=== PATIENT | male | born 1980 | race African-American/Black ===

== ENCOUNTER 2016-12-23 04:25 | Inpatient (IN) | payer MEDICAID ==
--- NOTE | ~2016-12-23 | CR72 ---
[facility] A Service of [facility] & [facility] RADIOLOGY TEXT RESULTS PATIENT: EDY COULTER LOCATION: [place] [address] : [birth year] UNIT #: [id number] AGE: [address]: Gracy Bassett MD SEX: M ORDER DR: [id number] [place] [id number] [place], [place] [address] [id number] I MR#: [id number] Acc #: [id number] NAME: EDY COULTER : 1980 SEX: M STUDY DATE/TIME: 12/24/2016 4:49 UNIT: [facility] ROOM: [facility] STUDY DESCRIPTION: CR Chest Single View Portable Attending Physician: Gracy Bassett M.D. Ordering Physician: Leandro Victor M.D. Primary Care Physician: No Primary Care Physician MEDICAL IMAGING REPORT This report is preliminary unless electronic signature is present EXAM Single view chest INDICATIONS Respiratory failure TECHNIQUE Single portable AP view chest COMPARISON 12/23/2016 FINDINGS Support lines and tubes are stable. Heart and mediastinal contours are unchanged. No new pulmonary opacities. No pneumothorax. IMPRESSION No interval change. Dictated by... Soto Morgan M.D. THIS IS AN ELECTRONICALLY VERIFIED REPORT Soto Morgan M.D. at 12/25/2016 1:02 AM Zarina TD: 12/24/2016 17:59 JOB #: [id number] MEDICAL IMAGING REPORT Page 1 of 1 COPY
--- NOTE | ~2016-12-23 | CO ---
Unit #: [id number] #: [id number] Patient: EDY COULTER [id number] [address] [address] [id number] I MR#: [id number] NAME: EDY COULTER. ROOM: 557 Age: 36 Sex: M Admission Date: 12/23/2016 : 1980 Attending Physician: Gracy Bassett M.D. Primary Care Physician: Primary Care Physician No Consultation Date: 12/23/2016 CONSULTATION REPORT REASON FOR CONSULTATION Respiratory failure. HISTORY OF PRESENT ILLNESS A 36-year-old gentleman, who was on a cocaine, alcohol, and Xanax binge. He was found down. EMS was called. Some bystander, CPR was performed. When EMS arrived, he had shallow respirations and responded to Narcan. He currently is on the ventilator. In the emergency room, he was found to have pulmonary infiltrates and started on Zosyn, acute kidney injury, elevated potassium which was treated. Neurology and Nephrology have been consulted. He currently sedated on the ventilator. PAST MEDICAL HISTORY Fairly unremarkable from what I can gather from the EHR and chart. HOME MEDICATIONS Unknown. ALLERGIES No known medical allergies. SOCIAL HISTORY Smokes a pack of cigarettes a day and does drink alcohol and obviously does recreational drugs. FAMILY HISTORY Unobtainable. REVIEW OF SYSTEMS Unobtainable. PHYSICAL EXAMINATION GENERAL: Reveals a patient, who is orally intubated and sedated. VITAL SIGNS: He is afebrile, pulse 96, respiratory rate is 18, blood pressure 107/73, 6 feet 2 inches, weight 240, BMI is 30. HEENT: Pupils are constricted, equal. Sclerae anicteric. Head, atraumatic. NECK: Supple. No supraclavicular or cervical adenopathy appreciated. CHEST: Equal breath sounds. No wheeze or stridor. CARDIAC: Reveals regular rate and rhythm. ABDOMEN: Soft and nontender. No hepatomegaly or rebound. EXTREMITIES: Reveal no clubbing, cyanosis, or edema. No calf tenderness. NEUROLOGIC: Sedated. Unit #: [id number] #: [id number] Patient: EDY COULTER DIAGNOSTIC STUDIES LABORATORY RESULTS: Arterial blood gas initially; pH of 7.14, pCO2 of 37, PO2 of 300. Now, he has an arterial blood gas; pH is 7.28, pCO2 of 36, PO2 of 178 on assist control of 18, 650, 50%, 5 of PEEP. He is receiving a bicarb infusion. BUN is 17; creatinine is 2.1; potassium now is 5.3, was 7.2; venous bicarb is 17. AST 1200, ALT 1800. BNP is 40. A variety of labs including lactic acid are pending. INR was normal. Cardiac enzymes, normal. White blood cell count 20, hemoglobin is 14, platelet count is 216. Tox screen positive for benzodiazepines, cocaine, marijuana. Urinalysis, hematuria. Blood cultures performed and are pending. IMAGING STUDIES: Chest x-ray shows pulmonary infiltrates. Repeat chest x-ray for central line placement revealed improved pulmonary infiltrates now fairly clear. CARDIOVASCULAR STUDIES: EKG, QTc less than 500, sinus tachycardia. IMPRESSION 1. Respiratory failure secondary to polydrug overdose. 2. Polydrug overdose. 3. Abnormal chest x-ray likely aspiration, given its rapid clearance of suspect pneumonitis versus pneumonia. 4. Acute kidney injury. 5. Hyperkalemia. 6. Leukocytosis. 7. Elevated liver function tests, likely shock liver. PLAN Mechanical ventilatory support, broad-spectrum antibiotics, check sputum and adjust as necessary. We will try to wean in the morning and if fails, we will institute enteral feeding. We will repeat arterial blood gas later today after adjustments in ventilator. Thank you very much for allowing me to participate in the care of Mr. Coulter. Dictated by... Leandro Victor M.D. MARY/melisa TD: 12/24/2016 02:36 JOB #: [id number] CONSULTATION REPORT Page 1 of 1 X Leandro Victor MD CONSULTATION REPORT
--- NOTE | ~2016-12-23 | HP ---
Unit #: [id number] #: [id number] Patient: EDY COULTER [id number] [address] [address] [id number] MR#: [id number] NAME: EDY COULTER. ROOM: Age: 36 Sex: M Admission Date: 12/23/2016 : 1980 Attending Physician: Valeria Estrada M.D. Primary Care Physician: No Primary Care Physician HISTORY AND PHYSICAL REVISED REPORT CHIEF COMPLAINT Overdose, unresponsiveness, aspiration pneumonia. HISTORY OF PRESENT ILLNESS This 36-year-old male who is healthy, was brought in by EMS for unresponsiveness. His family tells me that over the past week the patient has been on a binge, using cocaine. He also took Xanax and last night drank alcohol. When he went to bed at 11 p.m. he was diaphoretic, and his girlfriend put him on his side. When she awoke at 4:30 in the morning he had snoring respirations. She was unable to arouse the patient, therefore called EMS. EMS recommended that she put the patient on the floor and start bystander CPR. The patient never stopped breathing, but he did have snoring respirations. I am told when EMS arrived the patient had shallow respirations which responded somewhat to Narcan. I am told that he was never significantly hypoxic, did have a blood pressure and never lost his pulse. He was brought to this emergency department, where he has clinched his jaw, was not handling his secretions well, had an episode of emesis, and there was some questionable posturing. He was, therefore, intubated by the emergency room physician. His pupils were somewhat constricted, but reactive. He was sent to the CT scanner, where his head CT was negative. His chest x-ray does show evidence of bilateral opacities, probably consistent with aspiration pneumonia. In the emergency room his blood pressures have been fine, again he has never been hypoxic. Labs are notable for acute kidney injury, metabolic acidosis and hyperkalemia, along with significant leukocytosis. He was bloused with a liter of saline, given Zosyn, started on propofol, and was treated for his hyperkalemia with an amp of D50, 10 IV of regular insulin, calcium carbonate. I have asked that a total of 2 amps of bicarb be administered as his current ABG shows pH 7.15. On examination with the propofol turned off, his pupils are constricted, he is moving his right arm somewhat minimally, therefore, the propofol was turned back on. PAST MEDICAL HISTORY Unremarkable. SOCIAL HISTORY The patient lives with his girlfriend. Over the past week he has been binging on cocaine, although did use some alcohol as well as Xanax. He smokes one pack per day of tobacco. He does not use injectable drugs. FAMILY HISTORY Unit #: [id number] #: [id number] Patient: EDY COULTER Positive for kidney disease. ALLERGIES No known drug allergies. HOME MEDICATIONS None are prescribed, while the patient did take some Xanax from I believe a friend. REVIEW OF SYSTEMS Impossible to obtain as the patient is unconscious. PHYSICAL EXAMINATION GENERAL: 36-year-old male who is minimally responsive to noxious stimuli. VITALS: Temperature has not yet been obtained. Pulse 101, respiratory rate 28, initial blood pressure 135/106, current blood pressure 110/75, O2 saturations have been 100%. HEENT: The pupils are currently constricted, no corneals, no dolls. NECK: Supple without adenopathy or thyromegaly. The patient is orally intubated. CHEST: Mild rhonchi noted. HEART: Normal S1 and S2 without murmur. ABDOMEN: Bowel sounds are diminished, nontender, no hepatomegaly or masses, nondistended. EXTREMITIES: Without edema. NEUROLOGIC: The patient is not breathing above the vent, but he did move his right arm after the propofol was turned off. His pupils are constricted. Negative corneals. Negative dolls. DIAGNOSTIC STUDIES IMAGING: Head CT nothing acute. Chest x-ray bilateral pulmonary opacities. LABORATORY: hematocrit 45.8, white blood cell count 20.2, normal platelet count. SMA12, glucose 132, BUN 16, creatinine 2.4, potassium 7.2, CO2 15, AST 351, ALT 584. Cardiac markers are negative. Normal coags. Urine tox screen positive for marijuana, benzo, cocaine, alcohol level 77. BNP, lipase, amylase normal. Urinalysis 5-10 red cells, 2-5 white cells, 2+ blood, 2+ protein. CARDIOVASCULAR: EKG sinus tachycardia, rate 110. Nonspecific ST wave abnormalities. ASSESSMENT 1. Drug overdose. The patient has been on a cocaine binge for the past week. Also took Xanax and alcohol last evening. He never lost his pulse or stopped breathing, was not hypoxic. 2. Unresponsiveness. Hopefully this is a drug-induced coma, but will certainly ask Dr. Pineda to follow. 3. Acute kidney injury with hyperkalemia. 4. Metabolic acidosis. 5. Aspiration pneumonia. 6. Elevated LFTs. PLAN 1. Will give IV bicarb for now. 2. Treat hyperkalemia, although most of this may be related to metabolic Unit #: [id number] #: [id number] Patient: EDY COULTER acidosis. 3. Zosyn. 4. Check CPK, HIV, repeat cardiac enzymes, repeat chemistries, hepatitis profile in a couple of hours. 5. Pulmonary and neurology consultation. 6. DVT and gastritis prophylaxis. 7. Gentle sedation. 8. IV thiamine. 9. If chemistries are not improving, will ask nephrology to see. Critical care time spent in evaluation of this patient was 40 minutes. Dictated by Sofi Louie/gz TD: 12/23/2016 07:15 JOB #: [id number] CC: Chaparro/mairaision Please Delete HISTORY AND PHYSICAL Page 1 of 1 X Loren Joseph MD HISTORY AND PHYSICAL
--- NOTE | ~2016-12-23 | CO ---
Unit #: [id number] #: [id number] Patient: EDY COULTER [id number] [address] [address] [id number] I MR#: [id number] NAME: EDY COULTER. ROOM: [facility] Age: 36 Sex: M Admission Date: 12/23/2016 : 1980 Attending Physician: Gracy Bassett M.D. Primary Care Physician: No Primary Care Physician Consultation Date: 12/23/2016 CONSULTATION REPORT REASON FOR CONSULTATION Elevated creatinine level. HISTORY OF PRESENT ILLNESS Patient is a 36-year-old -[place] male, previously healthy, brought in with altered mental status and noted to have cocaine, Xanax and marijuana on his urine drug screen, poor respiratory effort, needing intubation. Patient had brief CPR by family but EMS never documented loss of pulse or blood pressure and was spontaneously breathing when first seen by EMS. The patient was intubated through the emergency room for poor respiratory effort. Initially no previous history of renal problems as per the records; was noted to have an initial potassium level of 7.2 with a CO2 of 15, BUN 16, creatinine 2.4, with a pH of 7.14, pCO2 of 37. The patient's potassium was treated and aggressively hydrated. A repeat potassium was 5.3 with a creatinine level of 2.1. PAST MEDICAL HISTORY The patient's past medical history is none. HOME MEDICATIONS None. SOCIAL HISTORY Patient noted to have marijuana, cocaine and Xanax in his urine drug screen, smokes a pack a day. FAMILY HISTORY Family history is significant for kidney disease as per the documents. History is not currently available by the patient as he is intubated. ALLERGIES No known drug allergies. REVIEW OF SYSTEMS Not available. Patient is intubated. PHYSICAL EXAMINATION GENERAL: On examination patient is on the vent, assist control FIO2. VITAL SIGNS: The temperature is 97.9, heart rate is 79 per minute, the blood pressure on admission was 93/59, improving now to 133/74 after hydration. HEENT: Head is atraumatic. The sclerae are anicteric. Nose no discharge. Ears no discharge. Unit #: [id number] #: [id number] Patient: EDY COULTER CHEST: Clear. Air entry is equal. HEART: S1, S2 audible. ABDOMEN: Soft. There is no organomegaly, no guarding, no rigidity, no rebound tenderness. There is trace edema. K[employer]ATE INST[employer]ER EXAM: Difficult to evaluate. normal. DIAGNOSTIC STUDIES LABORATORY: The lab data is significant for sodium 141, potassium 3.2, chloride 104, CO2 26, BUN 19, creatinine 1.7, glucose 88, calcium 8.3, phosphorus 0.9, magnesium 2, supplementation has been ordered, lactic acid 1.4, WBC 20.2, hematocrit 45.8, hemoglobin 14.4, platelets 216. IMPRESSION 1. Acute kidney injury, likely hemodynamic related with prerenal picture, improving gradually with improving urine output and improvement in the creatinine level. Hemodynamically more stable now after hydration. Unlikely to have ATN. 2. Check for obstruction and any evidence of AIN. The acidosis has improved. Unlikely ethylene glycol or methanol intoxication. 3. Metabolic acidosis secondary to lactic acidosis, resolved. 4. Hyperkalemia, resolved. 5. Acute respiratory failure. 6. Drug overdose with cocaine and Xanax abuse. 7. Monitor for hypotension. 8. Hypophosphatemia, supplement phosphorus and recheck levels. Dictated by... Sofi Puga TD: 12/25/2016 15:17 JOB #: [id number] CONSULTATION REPORT Page 1 of 1 X Shaquille Gusman MD CONSULTATION REPORT
--- NOTE | ~2016-12-23 | CR72 ---
[facility] A Service of [facility] & [facility] RADIOLOGY TEXT RESULTS PATIENT: EDY COULTER LOCATION: [place] [address] : [birth year] UNIT #: [id number] AGE: [address]: Gracy Bassett MD SEX: M ORDER DR: [id number] [facility] [address] [place] [place], [place] [address] [id number] I MR#: [id number] Acc #: [id number] NAME: EDY COULTER : 1980 SEX: M STUDY DATE/TIME: 12/23/2016 10:58 UNIT: [facility] ROOM: [facility] STUDY DESCRIPTION: CR Chest Single View Portable Attending Physician: Gracy Bassett M.D. Ordering Physician: Gracy Bassett M.D. Primary Care Physician: Primary Care Physician No MEDICAL IMAGING REPORT This report is preliminary unless electronic signature is present EXAM Portable chest, 12/23 INDICATIONS Line placement today. Shortness of air. FINDINGS AP portable chest is compared with earlier this morning. Right IJ line is at the cavoatrial junction. ET tube mid trachea. No pneumothorax. There is improved aeration of both lungs. Lung volumes are low but the lungs are essentially clear now. Dictated by... Delmer Winkler Jr., M.D. THIS IS AN ELECTRONICALLY VERIFIED REPORT Delmer Winkler Jr., M.D. at 12/26/2016 5:52 AM HENRI/liane TD: 12/23/2016 17:48 JOB #: [id number] MEDICAL IMAGING REPORT Page 1 of 1 COPY
--- NOTE | ~2016-12-23 | DS ---
Unit #: [id number] #: [id number] Patient: EDY COULTER [id number] [address] [address] [id number] I MR#: [id number] NAME: EDY COULTER. ROOM: [facility] Age: 36 Sex: M Admission Date: 12/23/2016 : 1980 Discharge Date: 12/26/2016 Attending Physician: Gracy Bassett M.D. Primary Care Physician: No Primary Care Physician DISCHARGE SUMMARY DISCHARGE DIAGNOSES 1. Acute hypercapnic hypoxic respiratory failure present on admission. 2. Sepsis. 3. Drug overdose. 4. Unresponsiveness from drug overdose. 5. Toxic metabolic encephalopathy. 6. Shock liver. 7. Acute kidney injury. 8. Hyperkalemia. 9. Hyponatremia. 10. Aspiration pneumonia. 11. Metabolic acidosis. 12. Hypophosphatemia. 13. Mild acute rhabdomyolysis present on admission. 14. Elevated troponin, secondary to acute rhabdomyolysis present on admission. No cardiac symptoms. CONSULTATIONS 1. Dr. Victor. 2. Dr. Shaquille Gusman. 3. Dr. Pineda. PROCEDURE None. DIAGNOSTIC STUDIES LABORATORY: Sodium 140, potassium 3.5, creatinine 1.1. WBC 6.9, hemoglobin 13.5, platelets 123,000. Sputum culture shows normal respiratory beth. IMAGING: CT of the head shows no acute intracranial abnormality. Chest x-ray shows no pneumothorax. No infiltrates. ALLERGIES [employer]. DISCHARGE MEDICATIONS Thiamine 100 p.o. daily. HOSPITALIZATION COURSE A 36 year old admitted because of unresponsiveness. Acute hypercapnic hypoxic respiratory failure, post drug overdose: The Unit #: [id number] #: [id number] Patient: EDY COULTER patient was intubated. Currently, extubated off oxygen. He is alert and oriented x3, breathing fine. Unresponsiveness secondary to drug overdose: Monitor closely in the ICU. Currently, he is alert and oriented x3. Sepsis with aspiration pneumonia: Patient is seen by Dr. Victor. Patient received IV antibiotics. Currently, he completed his course of Augmentin also. Acute kidney injury: Prerenal. Patient is seen by nephrology. Patient received IV fluids. Creatinine normal. Hypokalemia: Replace with p.o. potassium. Currently stable. Hypophosphatemia: Currently mildly low. Continue with feeding and it should get corrected itself. Metabolic acidosis, secondary to acute kidney injury: Resolved. Shock liver with acute rhabdomyolysis and elevated troponins secondary to drug overdose: Currently stable. Patient is okay to be discharged by pulmonary, renal. DISPOSITION Discharge home. FOLLOWUP 1. Follow with family physician in one week time. 2. Follow with psychiatrist of his choice in two weeks' time for drug overdose. He can follow at [facility]. Discharge time taken is 32 minutes. Discussed with family. Dictated by... Sofi Tamez TD: 12/26/2016 15:14 JOB #: [id number] DISCHARGE SUMMARY Page 1 of 1 X Gracy Bassett MD DISCHARGE SUMMARY
--- NOTE | ~2016-12-23 | CT71 ---
[facility] A Service [facility] RADIOLOGY TEXT RESULTS PATIENT: EDY COULTER LOCATION: [place] [address] : [birth year] UNIT #: [id number] AGE: [address]: Gracy Bassett MD SEX: M ORDER DR: [id number] [facility] [address] [place], [place] [address] [id number] I MR#: [id number] #: [id number] NAME: EDY COULTER : 1980 SEX: M STUDY DATE/TIME: 12/23/2016 5:14 UNIT: [facility] ROOM: [facility] STUDY DESCRIPTION: CT Head Wo Contrast Attending Physician: Gracy Bassett M.D. Ordering Physician: Valeria Estrada M.D. Primary Care Physician: No Primary Care Physician MEDICAL IMAGING REPORT This report is preliminary unless electronic signature is present EXAM CT head without contrast INDICATIONS Overdose tonight; loss of consciousness and confusion. PROCEDURE Unenhanced CT head. This CT exam was performed with one or more of the following radiation dose reduction techniques: automatic exposure control, adjustment of mA and/or kV according to patient size, and iterative reconstruction. COMPARISON None FINDINGS No acute hemorrhage, abnormal mass effect, extraaxial fluid collection or hydrocephalus. No depressed calvarial fracture. The paranasal sinuses and mastoid air cells are clear. IMPRESSION No acute intracranial findings. Dictated by... Maikol Zarate M.D. THIS IS AN ELECTRONICALLY VERIFIED REPORT Maikol Zarate M.D. at 12/28/2016 3:00 PM MARYJO/rocio TD: 12/23/2016 13:27 JOB #: [id number] [facility] A Service [facility] RADIOLOGY TEXT RESULTS PATIENT: EDY COULTER LOCATION: [facility] : [birth year] UNIT #: [id number] AGE: [address]: Gracy Bassett MD SEX: M ORDER DR: MEDICAL IMAGING REPORT Page 1 of 1 COPY
--- NOTE | ~2016-12-23 | CO ---
Unit #: [id number] #: [id number] Patient: EDY COULTER [id number] [facility] [address] [facility]. [place], [place] [address] [id number] MR#: [id number] NAME: EDY COULTER. ROOM: 557 Age: 36 Sex: M Admission Date: 12/23/2016 : 1980 Attending Physician: Gracy Bassett M.D. Primary Care Physician: No Primary Care Physician Consultation Date: 12/23/2016 CONSULTATION REPORT CONSULTING PHYSICIAN Dr. Lorne Joseph. REASON FOR CONSULT Coma. PATIENT IDENTIFICATION This is a 36-year-old unknown handedness -Surinamese male evaluated in ICU, room 1 at [facility]. SOURCE OF INFORMATION Obtained from the medical record and evaluation by medical staff. HISTORY OF PRESENT ILLNESS This is a 36-year-old unknown handedness -Surinamese male with substance abuse, who presents to [facility] with altered mental status, overdose, and unresponsiveness. According to the H and P, patient has no significant past medical conditions and is baseline healthy, was brought in by EMS for unresponsiveness. Apparently over the last week, according to family, he has been on a cocaine binge and also took some Xanax and drank alcohol the night prior to arrival. When he went to bed around 11 p.m., he was noted to be diaphoretic and his girlfriend put him on his side. When she woke up around 4:30 in the morning, he had snoring respirations. She apparently was unable to wake the patient up, so she called EMS. Apparently she was told to start bystander CPR; however, the patient never stopped breathing and he did have respirations and a pulse. Apparently when EMS arrived, the patient had shallow respirations and responded to Narcan and never lost his pulse. He was brought to the ER where he was not able to maintain his airway, had an episode of emesis, and thus he was intubated by the ER physician. He initially was apparently posturing, possibly unresponsive, and thus neurology was asked to evaluate. He had a head CT scan done that was negative for any acute findings. Chest x-ray showed evidence of bilateral opacities consistent with aspiration. He is improving significantly. He is intubated, sedated but even waking up on sedation now. He was admitted for drug overdose and acute respiratory failure secondary to above, altered mental status, acute kidney injury, hyperkalemia, and metabolic acidosis and aspiration. Neurology was asked to further evaluate as again he was initially unresponsive. At the time of our evaluation, the patient is improving and he is following some simple commands. Consistently, he is moving all extremities equally. He is a little restless, waking up, trying to pull himself out of the bed but is able to be calmed down. Again, he is requiring some sedation. His neurologic status has significantly improved at this time. Urine tox screen is positive for Unit #: [id number] #: [id number] Patient: EDY COULTER benzodiazepines, cocaine, and marijuana. PAST MEDICAL HISTORY None, patient has no chronic conditions. SOCIAL HISTORY The patient lives with his girlfriend. He uses cocaine and has been on a binge for the past week. He used some alcohol recently as well as Xanax. Smokes one pack per day of tobacco. No known IV drug use. FAMILY HISTORY Positive for kidney disease. ALLERGIES No known drug allergies. HOME MEDICATIONS No prescribed home medications, please see above. REVIEW OF SYSTEMS Unable to obtain from the patient as he is intubated and sedated. PHYSICAL EXAMINATION VITAL SIGNS: Temperature 98.7. He has been afebrile. He was hypothermic on arrival. Pulse 89, respirations 18, blood pressure 123/71, oxygen saturation 100% on ventilator. Height 6 feet 2 inches, weight 109 pounds. BMI 30. NEUROLOGIC: Still somewhat limited as the patient is intubated and sedated but he has remarkably improved since arrival in the ER when he was intubated. He is intubated. He is sedated with propofol; however, he wakes up. He tries to pull himself out of the bed and he is requiring soft wrist restraints. He does have equal spray mixer strength and follows commands consistently. He moves all extremities equally and spontaneously. I am unable to evaluate his speech and cognition in detail as he is intubated and has some sedation. CRANIAL NERVES: He responds to threats in the primary visual riddle. He has questionable disconjugate gaze but again he visually tracks and wakes up. No ptosis or nystagmus seen. Sensation in the face and scalp is unable to be assessed. Strength of muscles of facial expression appears to be intact. Hearing is intact to voice, unable to assess tongue, uvula, or palate. Head turning is unremarkable. Shoulder shrug is unremarkable. Neck is supple. MOTOR: He has equal spray mixer strength. He moves all extremities equally and spontaneously against gravity. SENSORY: Unable to be fully assessed in detail. GAIT: Gait and Romberg deferred. REFLEXES: Reflexes 1/4. Toes are equivocal. COORDINATION: Unable to fully assess at this time. No tremors or myoclonus seen. He is in soft wrist restraints. DIAGNOSTIC STUDIES LABORATORY: Acetaminophen level less than 10. Glucose on arrival 133. Troponin on arrival less than 0.05. PT 11.2, INR 1, PTT 23.4. White blood cell count 20.2, hemoglobin 14.4, hematocrit 45.8, platelet count 216,000. Urinalysis shows 2+ protein, 2+ blood, 5-10 red cells, 2-5 white cells, negative for bacteria, occasional squamous cells. Culture not indicated. Sodium 142, potassium 7.2 on arrival, chloride 104, CO2 of 15, glucose 132, BUN 16, creatinine 2.4, estimated GFR 38.8, calcium 8.8. AST 371, Unit #: [id number] #: [id number] Patient: EDY COULTER ALT 584, alkaline phosphatase 61, total protein 7.9, albumin 4.4. Magnesium 3.2. Alcohol level 77. Urine tox screen positive for benzodiazepines, cocaine, and marijuana. BNP 40. Lactic acid 2.7. HIV screen nonreactive. Other labs done (1) rest per chart have been reviewed. Repeat potassium 3.2. IMAGING: CT of the head without contrast on December 23, 2016. Impression per radiology report: No acute intracranial findings. Imaging reviewed and discussed with Dr. Pineda. IMPRESSION 1. Drug overdose. 2. Toxic and metabolic encephalopathy, improving clinically. 3. Acute respiratory failure. 4. Acute kidney injury. 5. Hyperkalemia. 6. Aspiration. PLAN The patient is significantly improving neurologically. He is nonfocal but exam is still limited as he is intubated, sedated. We will follow closely and re-evaluate pending extubation. He is afebrile. No reported seizures or stroke-like symptoms at this time. Now that he is more awake he is moving everything equally and following commands consistently. Upon re-evaluation, especially once he is able to be extubated, if anything focal is seen, we will request further imaging. At this time, will observe and further recommendations pending workup and further clinical course. Please call for any questions or issues. Dictated by... Karla Skelton A.P.R.N. for Sofi Carter/kevin TD: 12/25/2016 08:39 JOB #: [id number] CONSULTATION REPORT Page 1 of 1 X Karla Skelton APRN X CONSULTATION REPORT
--- NOTE | ~2016-12-23 | A ---
[facility] Nutrition Therapy DATE: 12/23/16 Patient: EDY COULTER Physician: GAUDENCIO Address: [address] [place] [address] Room/Bed: [address], Zip: [place] [address] Admit Date: 12/23/16 Date of : [birth year] Height: 6 2 Weight: 240 109 NUTRITIONAL ASSESSMENT: REASON: NPO IN ICU ASSESSMENT, INTUBATION PT IS 36 Y.O. MALE ADMITTED FOR ELEAZAR, OVERDOSE, HYPERKALEMIA, ASPIRATION PNA, UNRESPONSIVENESS PMH: NO KNOWN PMH Anthropometrics: 6'2", WT: 240# (109 KG), BMI: 30.8 Labs: CREAT: 2.1, K+:5.3 (ELEVATED), AST: 1204, ALT: 1852, M.2 (DEPLETED), GFR: 45.6 Meds: PROPOFOL, THIAMINE, ZOFRAN, PEPCID, VERSED I/O & Bowel function: NOT AVAILABLE Skin Integrity: NO KNOWN SKIN ISSUES Estimated Nutrition Needs: 4516-5675 KCAL (20-25 KCAL/KG BW) 109-130 G PRO (1.0-1.2 G PRO/KG BW) FLUIDS CONSISTENT W/KCAL NEEDS OR MANAGE PER MD Assessment: CHART REVIEWED AND EVENTS NOTED. PT SEEN FOR NPO IN ICU ASSESSMENT. PT CURRENTLY INTUBATED AND SEDATED AT TIME OF VISIT (PT ON PROPOFOL AT RATE OF 25.4 ML/HR PROVIDING ~670 KCAL FROM LIPIDS). PT ADMITTED FOR DX ABOVE. PER RN AND CHART, NO CURRENT PLANS IN PLACE FOR ALTERNATIVE NUTRITION SUPPORT AT THIS TIME. NO FAMILY IN ROOM AT TIME OF VISIT. PT NOT APPROPRIATE FOR DIET ADVANCEMENT, RD TO FOLLOW. SEE RECOMMENDATIONS BELOW. Dx: INADEQUATE PROTEIN-ENERGY INTAKE R/T CURRENT DIAGNOSIS, VENT DEPENDENCE AEB NPO STATUS. Intervention: 1. NPO Monitoring, Evaluation and Goals: 1. ENTERAL NUTRITION; ONCE INITIATED, PROVIDE >80% TOTAL VOLUME AT GOAL 2. WEIGHTS; PROMOTE GRADUAL WEIGHT LOSS TOWARDS HEALTHY BMI 3. LABS; WNL: K+, PHOS, CREAT, AST, ALT MONITOR: -PLANS FOR SUPPORT [facility] Nutrition Therapy DATE: 12/23/16 Patient: EDY COULTER Physician: GAUDENCIO Address: [address] [place] [address] Room/Bed: [address], Zip: [place] [address] Admit Date: 12/23/16 Date of : [birth year] Height: 6 2 Weight: 240 109 -WEIGHTS -EXTUBATION? -LABS Recommendations: 1. PLEASE REPLETE ELECTROLYTES BEFORE INITIATION OF ENTERAL NUTRITION SUPPORT 2. ONCE MEDICALLY FEASIBLE AND PT EXTUBATED, ADVANCE DIET TOLERATED TO HEALTHY HEART 3. IF PT REMAINS INTUBATED FOR >24 HOURS, CONSIDER PLACING DHT AND BEGIN ALTNERNATIVE NUTRITION SUPPORT OF JEVITY 1.5 @ 20 ML/HR, ADVANCE 10 ML q 8 HOURS TO GOAL RATE OF 45 ML/HR + SUGAR-FREE PROSTAT TID + +SEDATION -TOTAL PROVIDES 2590 KCAL, 114 G PRO, 821 ML FREE H20 ADD FREE H20 FLUSHES PER MD 4. ONCE PROPOFOL D/C'D, BEGIN ALTERNATIVE NUTRITION SUPPORT OF JEVITY 1.5 @ 20 ML/HR, ADVANCE 10 ML q 8 HOURS TO GOAL RATE OF 65 ML/HR + SUGAR-FREE PROSTAT ONCE DAILY -PROVIDES 2440 KCAL, 114 G PRO, 1186 ML FREE H20 ADD FREE H20 FLUSHES PER MD RD WILL F/U PER PROTOCOL PT IS MOD/SEVERELY COMPROMISED Respectfully, TIMMY CASTILLO MS, RD, LD [facility] cc: client file
--- NOTE | ~2016-12-23 | CR72 ---
[facility] A Service of [facility] RADIOLOGY TEXT RESULTS PATIENT: EDY COULTER LOCATION: [place] [address] : [birth year] UNIT #: [id number] AGE: [address]: Gracy Bassett MD SEX: M ORDER DR: [id number] [facility] [address] [place], [place] [address] [id number] MR#: [id number] Acc #: [id number] NAME: EDY COULTER : 1980 SEX: M STUDY DATE/TIME: 12/23/2016 4:59 [place]: [facility] [place]: [facility] [place] STUDY DESCRIPTION: CR Chest Single View Portable Attending Physician: Gracy Bassett M.D. Ordering Physician: Valeria Estrada M.D. Primary Care Physician: Primary Care Physician No MEDICAL IMAGING REPORT This report is preliminary unless electronic signature is present EXAM Portable chest INDICATION Intubation. Evaluate positioning. PROCEDURE Frontal view chest. COMPARISON None. FINDINGS ET tube 2.5 cm above the aga. Low lung volumes. Patchy alveolar opacities in both lungs. No pneumothorax. IMPRESSION 1. Patchy alveolar opacity in both lungs. 2. Tip of the ET tube is 2.5 cm above the aga. Dictated by... Maikol Zarate M.D. THIS IS AN ELECTRONICALLY VERIFIED REPORT Maikol Zarate M.D. at 12/28/2016 3:01 PM MARYJO/nichole TD: 12/23/2016 13:21 JOB #: [id number] MEDICAL IMAGING REPORT Page 1 of 1 COPY
--- NOTE | ~2016-12-23 | EKG ---
PATIENT: EDY COULTER UNIT #: [id number] Ventricular Rate: 101 BPM Atrial Rate: 101 BPM P-R Interval: 194 ms QRS Duration: 94 ms Q-T Interval: 378 ms QTC Calculation(Bezet): 490 ms P [place]: 63 degrees Calculated R [place]: 60 degrees Calculated T [place]: 16 degrees Diagnosis Line: Sinus tachycardia Diagnosis Line: Junctional ST depression, probably normal Diagnosis Line: Borderline ECG Diagnosis Line: No previous ECGs available Diagnosis Line: Confirmed by PARUL GREER MD ([id number]) on 12/28/2016 Diagnosis Line: 2:28:06 PM INTERPRETING MD: PERCY PARKS
[~2016-12-23 04:25] MED LIST: IBUPROFEN800 MG PO; LORTAB 5/500 TA1 TA1 PO
[2016-12-23 05:25] LABS: POC - CKMB 6.8 ng/mL (0.0-7.9); POC - TROPONIN <0.05 ng/mL (<=0.05)
[2016-12-23 05:31] LABS: URINE SOURCE CLEAN CATCH
[2016-12-23 05:34] LABS: BASOPHIL# 0.1 X10e3 (0-0.3); BASOPHIL% 0.3 % (0-2.5); DIFF IND YES; EOSINOPHIL% 0.2 % (0.0-7.0); HEMATOCRIT 45.8 % (38.0-50.0); HEMOGLOBIN 14.4 gm/dL (13.0-16.0); LYMPHOCYTE# 1.6 X10e3 (1.0-3.5); LYMPHOCYTE% 7.7 % (17.0-45.0); MEAN CELL VOLUME 95.4 FL (83-96); MEAN CORPUSCULAR HEMOGLOBIN 29.9 PG (28-34); MEAN CORPUSCULAR HGB CONC 31.4 g/dL (30-36); MEAN PLATELET VOLUME 8.7 FL (6.5-11.5); MONOCYTE% 4.7 % (3.0-12.0); NEUTROPHIL# 17.6 X10e3 (1.5-7.1); NEUTROPHIL% 87.1 % (40-75); PLATELET COUNT 216 X10e3 (140-420); RED CELL DISTRIBUTION WIDTH 14.2 % (11.0-15.5); WHITE BLOOD COUNT 20.2 X10e3 (4.0-10.5)
[2016-12-23 05:40] LABS: PARTIAL THROMBOPLASTIN TIME 23.4 SECONDS (23.5-31.3); PROTHROMBIN TIME (PATIENT) 11.2 SECONDS (10.0-11.7)
[2016-12-23 05:56] LABS: URINE APPEARANCE CLEAR; URINE BILIRUBIN NEG (NEG); URINE BLOOD 2+ (NEG); URINE COLOR YELLOW; URINE GLUCOSE NEG (NEG); URINE KETONE NEG (NEG); URINE LEUKOCYTE ESTERASE NEG (NEG); URINE NITRATE NEG (NEG); URINE PROTEIN 2+ (NEG); URINE SPECIFIC GRAVITY 1.011 (1.003-1.035); URINE UROBILINOGEN 0.2 MG/DL (NEG)
[2016-12-23 05:57] LABS: URINE BACTERIA AUWI NEG (NEGATIVE); URINE SQUAMOUS EPITHELIAL CELL OCC /[HPF]
[2016-12-23 06:01] LABS: PLATELET ESTIMATE NORMAL (NORMAL)
[2016-12-23 06:08] LABS: CULTURE INDICATED? NO
[2016-12-23 06:09] LABS: TEAR DROP CELLS PRESENT
[2016-12-23 06:11] LABS: URINE MUCUS PRESENT
[2016-12-23 06:14] LABS: ALBUMIN SERUM 4.4 g/dL (3.5-5.0); BILIRUBIN, DIRECT 0.1 mg/dL (0.0-0.2); BILIRUBIN,INDIRECT 0.6 mg/dL (0.0-0.9); BILIRUBIN,TOTAL 0.7 mg/dL (0.2-2.0); BUN/CREATININE RATIO 6.66; CALCIUM SERUM 8.8 mg/dL (8.4-10.2); CREATININE SERUM 2.4 mg/dL (0.6-1.4); GLOM FILT RATE Estimated 38.8 mL/min (>60); MAGNESIUM 3.2 mg/dL (1.6-3.0); PROTEIN TOTAL SERUM 7.9 g/dL (6.0-8.3)
[2016-12-23 06:19] LABS: POTASSIUM 7.2 mmol/L (3.5-5.1)
[2016-12-23 06:29] LABS: AMPHETAMINE NEG (NEG); BARBITURATES NEG (NEG); BENZODIAZEPINES POS (NEG); COCAINE POS (NEG); MARIJUANA POS (NEG); OPIATES NEG (NEG); TRICYCLIC ANTIDEPRESSANTS NEG (NEG); U METHADONE NEG (NEG)
[2016-12-23 06:45] LABS: ARTERIAL BLD GAS O2 SATURATION 97.6 % (90.0-100.0); ARTERIAL BLOOD GAS CARBOXY HB 0.7 %sat (0.0-9.0); ARTERIAL BLOOD GAS MET HB 1.3 %sat (0.0-2.0); ARTERIAL BLOOD GAS PCO2 37.9 mmHg (35.0-45.0)
[2016-12-23 06:47] LABS: ARTERIAL BLOOD GAS ALLEN TEST NORMAL; ARTERIAL BLOOD GAS ART SITE RIGHT RADIAL; ARTERIAL BLOOD GAS DELIVERY VENT; ARTERIAL BLOOD GAS VENT MODE AC; ARTERIAL BLOOD GAS pH 7.142 (7.350-7.450); ARTERIAL DRAW? YES
[2016-12-23 08:07] LABS: ARTERIAL BLD GAS O2 SATURATION 98.1 % (90.0-100.0); ARTERIAL BLOOD GAS ALLEN TEST NORMAL; ARTERIAL BLOOD GAS ART SITE RIGHT RADIAL; ARTERIAL BLOOD GAS CARBOXY HB 0.4 %sat (0.0-9.0); ARTERIAL BLOOD GAS HCO3 17.4 mmol/L; ARTERIAL BLOOD GAS MET HB 0.9 %sat (0.0-2.0); ARTERIAL BLOOD GAS PCO2 36.7 mmHg (35.0-45.0); ARTERIAL BLOOD GAS pH 7.284 (7.350-7.450); ARTERIAL DRAW? YES
[2016-12-23 08:08] LABS: ARTERIAL BLOOD GAS DELIVERY VENT; ARTERIAL BLOOD GAS VENT MODE A/C
[2016-12-23 09:50] LABS: ALBUMIN SERUM 4.2 g/dL (3.5-5.0); BILIRUBIN, DIRECT 0.2 mg/dL (0.0-0.2); BILIRUBIN,INDIRECT 0.8 mg/dL (0.0-0.9); BUN/CREATININE RATIO 8.09; CALCIUM SERUM 8.5 mg/dL (8.4-10.2); CREATININE SERUM 2.1 mg/dL (0.6-1.4); GLOM FILT RATE Estimated 45.6 mL/min (>60); PROTEIN TOTAL SERUM 7.5 g/dL (6.0-8.3)
[2016-12-23 09:52] LABS: POTASSIUM 5.3 mmol/L (3.5-5.1)
[2016-12-23 12:31] LABS: MB 79.2 ng/ml
[2016-12-23 13:01] LABS: ARTERIAL BLD GAS O2 SATURATION 98.4 % (90.0-100.0); ARTERIAL BLOOD GAS ALLEN TEST NORMAL; ARTERIAL BLOOD GAS ART SITE RIGHT RADIAL; ARTERIAL BLOOD GAS CARBOXY HB 0.3 %sat (0.0-9.0); ARTERIAL BLOOD GAS DELIVERY VENT; ARTERIAL BLOOD GAS MET HB 0.7 %sat (0.0-2.0); ARTERIAL BLOOD GAS PCO2 29.3 mmHg (35.0-45.0); ARTERIAL BLOOD GAS VENT MODE AC; ARTERIAL BLOOD GAS pH 7.556 (7.350-7.450); ARTERIAL DRAW? YES
[2016-12-23 14:06] LABS: BUN/CREATININE RATIO 11.17; CALCIUM SERUM 8.3 mg/dL (8.4-10.2); CREATININE SERUM 1.7 mg/dL (0.6-1.4); GLOM FILT RATE Estimated 58.9 mL/min (>60)
[2016-12-23 14:07] LABS: POTASSIUM 3.2 mmol/L (3.5-5.1)
[2016-12-23 14:26] LABS: PHOSPHOROUS 0.9 mg/dL (2.5-4.6)
[2016-12-23 15:10] LABS: CREATININE,RANDOM URINE 102 mg/dL; SODIUM URINE RANDOM 50 mmol/L; TOTAL PROTEIN,RANDOM URINE 42 mg/dl (<10)
[2016-12-23 17:42] LABS: BUN/CREATININE RATIO 11.33; CALCIUM SERUM 8.2 mg/dL (8.4-10.2); CREATININE SERUM 1.5 mg/dL (0.6-1.4); GLOM FILT RATE Estimated 68.5 mL/min (>60); POTASSIUM 3.2 mmol/L (3.5-5.1)
[2016-12-23 18:11] LABS: %MB 3.7 % (0.0-4.0); MB 96.7 ng/ml
[2016-12-24 06:03] LABS: HEMATOCRIT 41.5 % (38.0-50.0); HEMOGLOBIN 13.6 gm/dL (13.0-16.0); MEAN CORPUSCULAR HEMOGLOBIN 30.1 PG (28-34); MEAN CORPUSCULAR HGB CONC 32.8 g/dL (30-36); MEAN PLATELET VOLUME 8.9 FL (6.5-11.5); RED BLOOD COUNT 4.52 X10e (3.90-5.60); RED CELL DISTRIBUTION WIDTH 13.7 % (11.0-15.5)
[2016-12-24 06:21] LABS: MEAN CELL VOLUME 91.8 FL (83-96); WHITE BLOOD COUNT 8.9 X10e3 (4.0-10.5)
[2016-12-24 07:08] LABS: BUN/CREATININE RATIO 8.66; CALCIUM SERUM 8.6 mg/dL (8.4-10.2); CREATININE SERUM 1.5 mg/dL (0.6-1.4); GLOM FILT RATE Estimated 68.5 mL/min (>60); POTASSIUM 3.3 mmol/L (3.5-5.1)
[2016-12-24 08:21] LABS: ARTERIAL BLD GAS O2 SATURATION 97.4 % (90.0-100.0); ARTERIAL BLOOD GAS CARBOXY HB 0.2 %sat (0.0-9.0); ARTERIAL BLOOD GAS HCO3 27.6 mmol/L; ARTERIAL BLOOD GAS MET HB 0.8 %sat (0.0-2.0); ARTERIAL BLOOD GAS PCO2 48.9 mmHg (35.0-45.0)
[2016-12-24 08:22] LABS: ARTERIAL BLOOD GAS ALLEN TEST NORMAL; ARTERIAL BLOOD GAS ART SITE RIGHT RADIAL; ARTERIAL BLOOD GAS DELIVERY VENT; ARTERIAL BLOOD GAS VENT MODE CPAP; ARTERIAL DRAW? YES
[2016-12-24 18:04] LABS: SODIUM URINE RANDOM 47 mmol/L
[2016-12-24 18:46] LABS: OSMOLALITY,URINE 250 mOsmo/kg (250-900)
[2016-12-24 20:55] LABS: BUN/CREATININE RATIO 5.38; CALCIUM SERUM 8.2 mg/dL (8.4-10.2); CREATININE SERUM 1.3 mg/dL (0.6-1.4); GLOM FILT RATE Estimated 81.4 mL/min (>60); POTASSIUM 3.3 mmol/L (3.5-5.1)
[2016-12-25 06:43] LABS: HEMATOCRIT 41.5 % (38.0-50.0); HEMOGLOBIN 13.6 gm/dL (13.0-16.0); MEAN CELL VOLUME 91.8 FL (83-96); MEAN CORPUSCULAR HGB CONC 32.7 g/dL (30-36); MEAN PLATELET VOLUME 8.6 FL (6.5-11.5); RED BLOOD COUNT 4.52 X10e (3.90-5.60); RED CELL DISTRIBUTION WIDTH 13.6 % (11.0-15.5); WHITE BLOOD COUNT 8.3 X10e3 (4.0-10.5)
[2016-12-25 07:48] LABS: MAGNESIUM 2.5 mg/dL (1.6-3.0); PHOSPHOROUS 2.1 mg/dL (2.5-4.6)
[2016-12-26 06:19] LABS: HEMATOCRIT 41.2 % (38.0-50.0); HEMOGLOBIN 13.5 gm/dL (13.0-16.0); MEAN CELL VOLUME 90.7 FL (83-96); MEAN CORPUSCULAR HEMOGLOBIN 29.7 PG (28-34); MEAN CORPUSCULAR HGB CONC 32.7 g/dL (30-36); MEAN PLATELET VOLUME 8.7 FL (6.5-11.5); RED BLOOD COUNT 4.54 X10e (3.90-5.60); RED CELL DISTRIBUTION WIDTH 13.5 % (11.0-15.5); WHITE BLOOD COUNT 6.9 X10e3 (4.0-10.5)
[2016-12-26 06:41] LABS: BUN/CREATININE RATIO 4.54; CALCIUM SERUM 8.6 mg/dL (8.4-10.2); CREATININE SERUM 1.1 mg/dL (0.6-1.4); GLOM FILT RATE Estimated 99.6 mL/min (>60); POTASSIUM 3.5 mmol/L (3.5-5.1)
[2016-12-26] MEDS ORDERED: THIAMINE HCL100 M1 PO (13:46)
== END 2016-12-26 14:16 | disposition home or self-care (01) | DRG 917 ==
LOC: CED 04:25 → CEDOF 07:00 → CED 07:44 → CEDOF 08:19 → CICCU2 08:50 → CEDOF 08:50 → CICCU2 11:14 → C5B 12-24 18:41
PROVIDERS: Internal Medicine; Internal Medicine Nephrology; Student in an Organized Health Care Education/Training Program
PROC: 0BH17EZ Insertion of Endotracheal Airway into Trachea, Via Natural or Artificial Opening (ICD-10-PCS; principal; 2016-12-23)
PROC: 5A1945Z Respiratory Ventilation, 24-96 Consecutive Hours (ICD-10-PCS; 2016-12-23)
PROC: 05HM33Z Insertion of Infusion Device into Right Internal Jugular Vein, Percutaneous Approach (ICD-10-PCS; 2016-12-23)
PROC: B543ZZA Ultrasonography of Right Jugular Veins, Guidance (ICD-10-PCS; 2016-12-23)
DX: T40.5X1A Poisoning by cocaine, accidental (unintentional), initial encounter (principal); J69.0 Pneumonitis due to inhalation of food and vomit; K72.00 Acute and subacute hepatic failure without coma; G92 Toxic encephalopathy; A41.9 Sepsis, unspecified organism; J96.02 Acute respiratory failure with hypercapnia; J96.01 Acute respiratory failure with hypoxia; N17.9 Acute kidney failure, unspecified; E87.2 Acidosis; M62.82 Rhabdomyolysis; E87.0 Hyperosmolality and hypernatremia; E87.5 Hyperkalemia; E83.39 Other disorders of phosphorus metabolism; R74.9 Abnormal serum enzyme level, unspecified; Z91.030 Bee allergy status; T42.4X1A Poisoning by benzodiazepines, accidental (unintentional), initial encounter
CPT/HCPCS: 31500; 36600; 51702; 70450; 71010; 80048; 80076; 80307; 81003; 82550; 82553; 82570; 82803; 82947; 83605; 83690; 83735; 83874; 83880; 83930; 83935; 84100; 84132; 84156; 84300; 84484; 85025; 85027; 85610; 85730; 87070; 87205; 87806; 93005; 94002; 94003; 94640; 94760; 96365; 99291; G0480; J0330; J0610; J1650; J2250; J2270; J2405; J2543; J3010; J3411